=== PATIENT | female | born 1985 | race Caucasian/White ===

== ENCOUNTER 2023-03-07 15:34 | Emergency (ER) | payer OTHER, SELFPAY ==
[2023-03-07] VITALS (30 sets, daily range): BP systolic 141–174; BP diastolic 92–107; PULSE 76–100; RESP 18–20; TEMP 37.4; O2SAT 95–99; BMI 43.3
--- NOTE | 2023-03-07 15:45 | ED.NURSE ---
Intermittent since last Sat. EKG NSR. Dr Guerrero aware and pt ok to wait.
--- NOTE | 2023-03-07 15:58 | ED.CHESTPAIN ---
HPI - Chest Pain General Date Seen: 03/07/23 Chief Complaint: Chest Pain Stated Complaint: Chest Pain Time Seen by Provider: 03/07/23 15:58 Source: patient Mode of arrival: ambulatory Limitations: no limitations History of Present Illness HPI narrative: Essie is a very pleasant 38-year-old female with a history of obesity otherwise healthy who comes to the emergency room for evaluation of chest pain. Patient notes that she has been experiencing intermittent substernal middle of the chest discomfort since last Saturday or approximately 8 days ago. She states the pain is usually worse in the morning when she 1st gets up and occasionally few she feels it in the afternoon. In the evening however the pain goes away. Today she has been in the emergency room for extended periods secondary to high patient volume and notes that she has had pain the entire time. It is not associated with dizziness, shortness of breath, nausea. Does not really change with activity. It does appear to come and go. In discussion with Essie she has not had any recent fever chills. She is on control also denies . She does note sister with a history of a blood clot but no known history of factor 5. Her mother has atrial fibrillation and a heart murmur. Essie denies unusual lower extremity edema or calf pain. Related Data Home Medications Medication Instructions Recorded Confirmed No Known Home Medications 03/07/23 03/07/23 Allergies Allergy/AdvReac Type Severity Reaction Status Date / Time No Known Drug Allergies Allergy Verified 03/07/23 15:43 Review of Systems Status of ROS Reports: 10 or more systems reviewed and unremarkable except as noted in History and below Const Denies: fever, chills or change in weight Eyes Denies: change in vision or blurry vision ENMT Denies: throat pain or throat swelling Cardio Reports: chest pain; Denies: palpitations, edema, swelling of feet/ankles, lightheadedness or shortness of breath with exertion Resp Denies: shortness of breath or cough GI Denies: abdominal pain, nausea or vomiting Musculo Denies: back pain, extremity pain or extremity swelling Integ/Breast Denies: rash Neuro Denies: headache, numbness in extremities or weakness in extremities Psych Denies: anxiety Endo Denies: excessive urination Allergy/Immuno Denies: throat swelling PFSH PFSH Social History Smoking Status: Never smoker Do you use any of these nicotine containing products: None Second hand tobacco smoke exposure: No How often do you have a drink containing alcohol: 2-4 times a month How many standard drinks containing alcohol do you have on a typical day: 1 or 2 How often do you have six or more drinks on one occasion: Never AUDIT-C Alcohol total score: 2 Non-prescribed substance use: denies use service: No Exam Narrative Exam Narrative: Essie is alert and oriented. Nontoxic in appearance. Neck is supple no lymphadenopathy. Heart with regular rate and rhythm. No murmur. Patient thought she may felt better while leaning forward however. He abdomen is soft and nontender. Negative Payne sign. Lower extremities without significant edema. No calf tenderness. Const Vital Signs, click to edit/add: Vital Signs - 24 hr 03/07/23 15:38 03/07/23 17:19 03/07/23 17:25 Temperature 99.3 F Pulse Rate 100 Pulse Rate [Pulse Oximeter] 90 95 Respiratory Rate 20 18 Blood Pressure Blood Pressure [Left Upper Arm] 154/100 H 155/100 H Pulse Oximetry 98 98 97 Oxygen Delivery Method Room Air Room Air 03/07/23 17:30 03/07/23 17:31 03/07/23 17:45 Temperature Pulse Rate 88 88 84 Pulse Rate [Pulse Oximeter] Respiratory Rate Blood Pressure 174/107 H Blood Pressure [Left Upper Arm] Pulse Oximetry 99 99 99 Oxygen Delivery Method 03/07/23 18:01 03/07/23 18:02 03/07/23 18:15 Temperature Pulse Rate 87 95 87 Pulse Rate [Pulse Oximeter] Respiratory Rate Blood Pressure 151/93 H Blood Pressure [Left Upper Arm] Pulse Oximetry 97 97 96 Oxygen Delivery Method 03/07/23 18:39 03/07/23 18:45 03/07/23 19:00 Temperature Pulse Rate 89 79 84 Pulse Rate [Pulse Oximeter] Respiratory Rate Blood Pressure Blood Pressure [Left Upper Arm] Pulse Oximetry 98 97 98 Oxygen Delivery Method 03/07/23 19:01 03/07/23 19:15 03/07/23 19:30 Temperature Pulse Rate 85 80 81 Pulse Rate [Pulse Oximeter] Respiratory Rate Blood Pressure 147/92 H Blood Pressure [Left Upper Arm] Pulse Oximetry 98 99 97 Oxygen Delivery Method 03/07/23 19:31 03/07/23 19:41 03/07/23 19:42 Temperature Pulse Rate 90 76 77 Pulse Rate [Pulse Oximeter] Respiratory Rate Blood Pressure 141/106 H 143/101 H Blood Pressure [Left Upper Arm] Pulse Oximetry 99 99 98 Oxygen Delivery Method 03/07/23 19:45 03/07/23 20:00 03/07/23 20:01 Temperature Pulse Rate 85 78 80 Pulse Rate [Pulse Oximeter] Respiratory Rate Blood Pressure 141/97 H Blood Pressure [Left Upper Arm] Pulse Oximetry 95 97 97 Oxygen Delivery Method 03/07/23 20:15 03/07/23 20:30 03/07/23 20:31 Temperature Pulse Rate 85 85 84 Pulse Rate [Pulse Oximeter] Respiratory Rate Blood Pressure 144/101 H Blood Pressure [Left Upper Arm] Pulse Oximetry 98 98 97 Oxygen Delivery Method 03/07/23 20:46 03/07/23 21:00 03/07/23 21:01 Temperature Pulse Rate 90 87 87 Pulse Rate [Pulse Oximeter] Respiratory Rate Blood Pressure 151/98 H Blood Pressure [Left Upper Arm] Pulse Oximetry 96 96 97 Oxygen Delivery Method 03/07/23 21:15 03/07/23 21:30 03/07/23 21:31 Temperature Pulse Rate 80 85 83 Pulse Rate [Pulse Oximeter] Respiratory Rate Blood Pressure 151/97 H Blood Pressure [Left Upper Arm] Pulse Oximetry 97 98 99 Oxygen Delivery Method Documenting provider has reviewed patient's vital signs: yes Course Course Hospital Course: Differential diagnosis includes but is not limited to angina, acute coronary event, esophageal spasm, esophagitis, anxiety, pericarditis, chest wall pain. Will place an IV and the draw labs to include CBC, CRP, troponin, comprehensive. Will do EKG and chest x-ray as well. Reevaluation(s) Reevaluation #1: Patient notes no change in her discomfort with the use GI cocktail. She will now be given Toradol. EKGs continue to be negative initial troponin is negative as well. Reevaluation #2: Patient still continues to feel substernal chest pain. Toradol and a GI cocktail did not appear to make a difference. At this time I have ordered a CT of the chest. Vital Signs Vital signs: Initial Vital Signs Temperature 99.3 F 03/07/23 15:38 Temperature Source Temporal Artery Scan 03/07/23 15:38 Pulse Rate 90 03/07/23 15:38 Respiratory Rate 20 03/07/23 15:38 Blood Pressure 154/100 H 03/07/23 15:38 Blood Pressure Mean 118 H 03/07/23 15:38 Blood Pressure Position Sitting 03/07/23 15:38 Pulse Oximetry 98 03/07/23 15:38 Oxygen Delivery Method Room Air 03/07/23 15:38 Vital Signs Temperature 99.3 F 03/07/23 15:38 Pulse Rate 90 03/07/23 15:38 Respiratory Rate 20 03/07/23 15:38 Blood Pressure 154/100 H 03/07/23 15:38 Pulse Oximetry 98 03/07/23 15:38 Oxygen Delivery Method Room Air 03/07/23 15:38 Temperature 99.3 F 03/07/23 15:38 Pulse Rate 83 03/07/23 21:31 Respiratory Rate 18 03/07/23 17:19 Blood Pressure 151/97 H 03/07/23 21:31 Pulse Oximetry 99 03/07/23 21:31 Oxygen Delivery Method Room Air 03/07/23 17:19 MDM - Chest Pain MDM Narrative Medical decision making narrative: 1. Atypical chest pain-patient had been experiencing chest discomfort while in our waiting room for an extended. Fortunately no evidence of ST or T-wave changes no and we have 2 sets of cardiac enzymes that were negative. D-dimer was normal as was CRP. There was no evidence of aortic dissection. GI cocktail, Toradol did not seem to change the discomfort. Patient does note that she was able to be very active over the weekend without any chest pain. Tonight the pain does not seem to be related to activity or rest. It is been occurring intermittently. I would like patient to follow-up with Dr. Santiago as she does have biventricular cardiomegaly on CT. No other findings to explain her discomfort. She does have a history of a heart murmur. I think it would be rodriguez for stress test and echocardiogram in her particular case. She understands that she will need to return to the emergency room for worsening symptoms and feels safe going home at this time. 2. Suspected GERD-omeprazole 20 mg p.o. given at this time. Like her to continue that for an additional 2 weeks. 2. Disposition-home at this time. Return for worsening symptoms and as needed. Medical Records Data Attestation: I reviewed the patient's medical records. Lab Data Attestation: I reviewed the patient's lab results. Labs: Lab Results 03/07/23 03/07/23 03/07/23 Range/Units 17:31 17:45 19:15 WBC 9.19 (4.50-11.00) K/uL RBC 5.20 (4.00-5.20) m/uL Hgb 15.6 (12.0-16.0) gm/dL Hct 46.2 (33.0-51.0) % MCV 89 (80-100) fL MCH 30 (26-34) pg MCHC 34 (32-36) gm/dL RDW Coeff of Shama 11.8 (11.5-15.5) % Plt Count 338 (140-440) K/uL Neut % (Auto) 67.8 (42.0-72.0) % Lymph % (Auto) 25.7 (20-44) % [place] % (Auto) 5.5 (0.0-11.0) % Eos % (Auto) 0.7 (0.0-7.0) % Baso % (Auto) 0.2 (0.0-3.0) % Neut # (Auto) 6.23 (1.7-7.0) K/uL Lymph # (Auto) 2.36 (0.90-2.90) K/uL [place] # (Auto) 0.50 (0.00-0.90) K/UL Eos # (Auto) 0.06 (0.00-0.50) K/uL Baso # (Auto) 0.02 (0.00-0.30) K/uL D-Dimer Quant (PE/DVT) 0.50 (0.00-0.50) ug/ml Sodium 137 (135-149) mmol/L Potassium 4.1 (3.6-5.1) mmol/L Chloride 104 (96-114) mmol/L Carbon Dioxide 23 (20-32) mmol/L BUN 15 (5-24) mg/dL Creatinine 0.7 (0.5-1.5) mg/dL Estimated Creat Clear 99.01 Estimated GFR 114 ml/min Glucose 104 (60-115) mg/dL Calcium 8.7 (8.4-10.6) mg/dL Total Bilirubin 0.4 (0.1-1.5) mg/dL Direct Bilirubin 0.0 (0.0-0.5) mg/dL AST 23 (12-35) U/L ALT 27 (4-35) U/L Alkaline Phosphatase 79 (40-150) U/L C-Reactive Protein 0.6 (0.5-1.0) mg/dL Total Protein 8.6 H (6.0-8.3) g/dL Albumin 4.8 (3.3-5.0) g/dL Urine Color Yellow (Yellow) Urine Appearance Clear (Clear) Urine pH 5.5 (5.0-8.5) Ur Specific Mchenry 1.015 (1.000-1.030) Urine Protein Negative (Negative) Urine Glucose (UA) Negative (Negative) Urine Ketones Negative (Negative) Urine Blood Trace-intact A (Negative) Urine Nitrite Negative (Negative) Urine Bilirubin Negative (Negative) Urine Urobilinogen 0.2 (0.2-1.0) Ur Leukocyte Esterase Trace A (Negative) Urine HCG, Qual Negative (Negative) POC Troponin I 0.00 L 0.00 L (0.01-0.04) ng/ml Imaging Data Chest x-ray: Attestation: I have reviewed the pertinent imaging results. My impression: No evidence of infiltrates by my read Radiologist's impression: Cardiovascular and mediastinum:? Cardiomediastinal silhouette is within normal limits.? Lungs and pleural spaces:? Lungs are clear.? No sign of pleural effusion.? No pneumothorax.? Bones and soft tissues:? No significant findings. IMPRESSION: No acute cardiopulmonary process identified. CT scan - chest: Attestation: I have reviewed the pertinent imaging results. Radiologist's impression: Cardiovascular: The pulmonary arteries are unremarkable in enhancement with no evidence of acute pulmonary embolism. Mild biventricular cardiomegaly is noted. No sign of aneurysm in the thoracic aorta. Mediastinum: No mass or adenopathy seen. Lung: Both lungs are unremarkable in appearance. Pleura and pericardium: No sign of pleural effusion seen. No significant pericardial effusion is present. Chest wall and axilla: No mass or adenopathy seen. Bone: Unremarkable for age. Upper abdomen: Unremarkable. IMPRESSIONS: 1. No CT evidence of acute pulmonary emboli seen. 2. Mild biventricular cardiomegaly is noted. ECG Data Attestation: I personally reviewed and interpreted this ECG as follows: ECG interpretation date: 03/07/23 Interpretation: EKG by my read shows sinus rhythm at a rate of 91. I do not note any acute ST or T-wave changes. Second EKG by my read shows sinus rhythm at a rate of [address] or T-wave changes. Discharge Plan Discharge Clinical Impression: Atypical chest pain Patient Disposition: Home, Self-Care Condition: Unchanged Additional Instructions: Continue omeprazole daily for 2 weeks. This is [id number]. Take 20 mg or 1 tablet daily. Follow-up with Dr. Santiago or another colleague if there is availability for stress test scheduling as well as echocardiogram. Return to the emergency room for worsening symptoms or the onset of new symptoms. Prescriptions: No Action No Known Home Medications Follow Up/Referrals: Provider,Not a Local [Primary Care Provider] - Stand Alone Forms: [employer] Info Instructions
--- NOTE | 2023-03-07 17:32 | CRLHL7_ITS ---
For Patients: As a result of the Cures Act, medical imaging exams and procedure reports are released immediately into your electronic medical record. You may view this report before your referring provider. If you have questions, please contact your health care provider. INDICATION: Chest pain. TECHNIQUE: Chest 1 views. COMPARISON: None. FINDINGS: Cardiovascular and mediastinum: Cardiomediastinal silhouette is within normal limits. Lungs and pleural spaces: Lungs are clear. No sign of pleural effusion. No pneumothorax. Bones and soft tissues: No significant findings. IMPRESSION: No acute cardiopulmonary process identified. Dictated by Hong Leon MD @ 03/07/2023 7:21:20 PM (Electronically Signed)
[2023-03-07 18:03] LABS: Basophils Absolute Auto 0.02 K/uL (0.00-0.30); Basophils Percent Auto 0.2 % (0.0-3.0); Eosinophils Absolute Auto 0.06 K/uL (0.00-0.50); Eosinophils Percent Auto 0.7 % (0.0-7.0); Hematocrit 46.2 % (33.0-51.0); Hemoglobin* 15.6 gm/dL (12.0-16.0); Immature Granulocytes Abs Auto 0.01 K/uL (0.00-0.30); Immature Granulocytes Pct Auto 0.1 %; Lymphocytes Absolute Auto 2.36 K/uL (0.90-2.90); Lymphocytes Percent Auto 25.7 % (20-44); Mean Corpuscular HGB Conc 34 gm/dL (32-36); Mean Corpuscular Hemoglobin 30 pg (26-34); Mean Corpuscular Volume 89 fL (80-100); Monocytes Percent Auto 5.5 % (0.0-11.0); Neutrophils Absolute Auto 6.23 K/uL (1.7-7.0); Neutrophils Percent Auto 67.8 % (42.0-72.0); Platelet Count* 338 K/uL (140-440); RDW Coefficient of Variation % 11.8 % (11.5-15.5); White Blood Count* 9.19 K/uL (4.50-11.00)
[2023-03-07 18:15] LABS: Chloride* 104 mmol/L (96-114)
[2023-03-07 18:16] LABS: Albumin* 4.8 g/dL (3.3-5.0); Potassium* 4.1 mmol/L (3.6-5.1); Sodium* 137 mmol/L (135-149)
[2023-03-07 18:18] LABS: Creatinine* 0.7 mg/dL (0.5-1.5); Est. Creatinine Clearance* 99.01; Estimated Glomerular Filt Rate 114 ml/min; Slide Review Reflex No
[2023-03-07 18:19] LABS: Alanine Aminotransferase* 27 U/L (4-35); Alkaline Phosphatase* 79 U/L (40-150); Aspartate Amino Transferase* 23 U/L (12-35); Bilirubin Total* 0.4 mg/dL (0.1-1.5); Blood Urea Nitrogen* 15 mg/dL (5-24); Carbon Dioxide* 23 mmol/L (20-32); Glucose* 104 mg/dL (60-115); Total Protein* 8.6 g/dL (6.0-8.3)
[2023-03-07 18:20] LABS: Calcium* 8.7 mg/dL (8.4-10.6)
[2023-03-07] MEDS: GI COCKTAIL (VISC LIDO/ANTACID) 30 ML PO (18:20)
[2023-03-07 18:22] LABS: C Reactive Protein* 0.6 mg/dL (0.5-1.0)
--- NOTE | 2023-03-07 18:24 | ED.NURSE ---
was given gi cocktail. has no change in vague chest discomfort.
[2023-03-07 18:46] LABS: Appearance Urine Clear (Clear); Bilirubin Urine Negative (Negative); Blood Urine Trace-intact (Negative); Color Urine Yellow (Yellow); Glucose Urine Negative (Negative); Ketones Urine Negative (Negative); Leukocyte Esterase Urine Trace (Negative); Nitrite Urine Negative (Negative); Protein Urine Negative (Negative); Specific Gravity Urine 1.015 (1.000-1.030); Urobilinogen Urine 0.2 (0.2-1.0); pH Urine 5.5 (5.0-8.5)
[2023-03-07 18:51] LABS: Ur HCG Qualitative* Negative (Negative)
[2023-03-07] MEDS: KETOROLAC 15 MG/ML inj IVP (19:37)
--- NOTE | 2023-03-07 20:17 | CRLHL7_ITS ---
For Patients: As a result of the Century Cures Act, medical imaging exams and procedure reports are released immediately into your electronic medical record. You may view this report before your referring provider. If you have questions, please contact your health care provider. INDICATION: Chest pain TECHNIQUE: CT chest with i.v. contrast using pulmonary angiographic technique. Coronal and sagittal reformats were obtained. CONTRAST: 95 mL Isovue 370 COMPARISON: None FINDINGS: Cardiovascular: The pulmonary arteries are unremarkable in enhancement with no evidence of acute pulmonary embolism. Mild biventricular cardiomegaly is noted. No sign of aneurysm in the thoracic aorta. Mediastinum: No mass or adenopathy seen. Lung: Both lungs are unremarkable in appearance. Pleura and pericardium: No sign of pleural effusion seen. No significant pericardial effusion is present. Chest wall and axilla: No mass or adenopathy seen. Bone: Unremarkable for age. Upper abdomen: Unremarkable. IMPRESSIONS: 1. No CT evidence of acute pulmonary emboli seen. 2. Mild biventricular cardiomegaly is noted. Dictated by Edwardo Chino MD @ 03/07/2023 9:46:11 PM Please note that all CT scans at this facility use dose modulation, iterative reconstruction, and/or weight-based dosing when appropriate to reduce radiation dose to as low as reasonably achievable. Dictated by: Edwardo Chino MD @ 03/07/2023 21:46:13 (Electronically Signed)
[2023-03-07] MEDS: OMEPRAZOLE 20 MG CAPSULE DR PO (22:21)
[2023-03-08 01:12] LABS: RBC Urine 0-2 (0-2); Squamous Epithelial Cell Urine Few (None-Few); WBC Urine 0-2 (0-5)
== END 2023-03-07 22:22 | disposition home or self-care (01) ==
PROVIDERS: Emergency Provider Family Medicine
DX: R07.89 Other chest pain (principal)
CPT/HCPCS: 36415; 71045; 71260; 80053; 81001; 81025; 82248; 84484; 85025; 85379; 86140; 93005; 96374; 99284; 99285; A9270; J1885; Q9967

== ENCOUNTER 2024-08-05 07:50 | Outpatient (CLI) | payer BC, SELFPAY ==
--- OUTSIDE RECORDS SUMMARY | 2024-08-05 14:22 | XMS_ITS | Clinical Summary ---
Author Organization [facility] Address [place], [place] [address] Care Team Providers Care Remelt Sugar Boiler Name Role Phone Clinic, [facility] Primary Care Pr ovider Allergies No known active allergies Medications Medication Sig Dispensed Refills Start Date End Date Status permethrin (ELIMITE) 5 % creamIndications:Scabi es Apply to entire body from the neck down and leave on for 8 hours. Then rinse and repeat this in one week. 60 g 08/06/2018 Active Active Problems No known active problems Social History Tobacco Use Types Packs/Day Years Used Date Smoking Tobacco: Never Smokeless Tobacco: Never Tobacco Cessation:Counseling Given: Yes Alcohol Use Standard Drinks/Week Comments Yes 0 (1 standard drink = 0.6 oz pur e alcohol) occasional PHQ-2 Answer Date Recorded PHQ-2 Score 0 01/06/2019 Sex and Gender Information Value Date Recorded Sex Assigned at Not on file Gender Identity Not on file Sexual Orientation Not on file Obstetrics History Last Filed Vital Signs Vital Sign Reading Time Taken Comments Blood Pressure 136/92 08/06/2018 2:44 PM CDT Pulse 100 08/06/2018 2:44 PM CDT Temperature 36.6 ??C (97.9 ??F) 08/06/2018 2:44 PM CD T Respiratory Rate - - Oxygen Saturation 97% 08/06/2018 2:44 PM CDT Inhaled Oxygen Concentration - - Weight 123.9 kg (273 lb 1.6 oz) 08/06/2018 2:44 PM CDT Height 163.8 cm (5' 4.5) 08/06/2018 2:44 PM CDT Body Mass Index 46.15 08/06/2018 2:44 PM CDT Plan of Treatment Health Maintenance Due Date Last Done Comments Tdap 1997 HIV for age 15-65 2001 Hepatitis C screening for ag e 18-79 01/03/2004 Tetanus booster 2006 BMI (ht and wt on same day) for age 18+ 08/06/2019 08/06/2018 Depression screening for age 12+ 08/06/2019 08/06/2018 Pap test for age 21-65 05/14/2020 7, 05/14/2017 COVID-19 vaccine series ( - 2023-25 season) 2024 Influenza for age 9-49 07/05/2024 Pneumococcal series for age 6-64 Aged Out No longer eligible b ased on patient's age to complete this topic Procedures Procedure Name Priority Date/Time Associated Diagnosis Comments SALES INCENTIVE ANALYST THIN PREP PAP SCREEN IMAGED Routine 05/14/2017 7:00 PM CDT from Last 3 Months or Most Recently Relevant to Health Maintenance Results * SALES INCENTIVE ANALYST THIN PREP PAP SCREEN IMAGED (05/14/2017 7:00 PM CDT) Case Report Gynecologic Cytology Report ? Case: [id number] ? Authorizing Provider: ??Arelis Amador PA-C ?Collected: ? 05/14/2017 1900 ? First Screen: ?Rios, Shy ? Received: ?05/17/2017 0848 ? Specimen: ?SALES INCENTIVE ANALYST ThinPrep Vial Screening, Cervical/Vaginal ? 05/22/2017 10:25 AM CDT [facility] INTERPRETATION/ RESULT NEGATIVE FOR INTRAEPITHELIAL LESION OR MALIGNANCY (NIL) (none) 05/22/2017 10:25 AM CDT [facility] IMEN ADEQUACY Satisfactory for evaluation Endocervical component present 05/22/2017 10:25 AM CDT [facility] HPV REQUEST HPV and PAP 05/22/2017 10:25 AM T [facility] Automated Review Successful 05/22/2017 10:25 AM T [facility] Comment:Specimen processed s uccessfully by automated lead front desk agent device, [employer] Imaging System, [employer] ANCILLARY TESTING SALES INCENTIVE ANALYST HPV Ordered, Please see separate report 05/22/2017 10:25 AM T [facility] Note The pap test is a screening technique, not a diagnostic procedure. ??It is used primarily to screen for squamous cancers and precursor lesions. ??Published studies have shown that it is subject to both false negative and false positive results. ??The pap test should not be used as the sole means to diagnose or exclude pre-malignant and malignant lesions. Interpreted at [facility] ([facility], [facility], [facility], [facility], [facility], [facility], [facility]) 05/22/2017 10:25 AM T [facility] Other (Cervical/Vagina l) 05/14/2017 7:00 PM CDT 05/17/2017 8:48 AM CDT February Marjorie LAI PATHOLOGY/[facility]OLOGY [facility] [address] [place] [address], [place] from Last 3 Months or Most Recently Relevant to Health Maintenance Care Teams Remelt Sugar Boiler Relationship Specialty Start Date End Date Clinic, [facility] [address] [place] [address] PCP - General 06/15/24
== END 2024-08-05 07:51 | disposition home or self-care (01) ==
PROVIDERS: PCP Internal Medicine; Referring Provider Internal Medicine; Visit Provider Internal Medicine
DX: Z00.00 Encounter for general adult medical examination without abnormal findings (principal); I10 Essential (primary) hypertension; Z80.41 Family history of malignant neoplasm of ovary; Z13.6 Encounter for screening for cardiovascular disorders
CPT/HCPCS: 80053; 80061; 86304

== ENCOUNTER 2024-08-17 17:10 | Outpatient (CLI) | payer BC, SELFPAY ==
--- OUTSIDE RECORDS SUMMARY | 2024-08-17 17:18 | XMS_ITS | Clinical Summary ---
Author Organization [facility] Address [place], [place] [address] Care Team Providers Care Forms Examiner Name Role Phone Clinic, [facility] Primary [facility] Pr ovider Allergies No known [...] Procedure Name Priority Date/Time Associated Diagnosis Comments HOSPITALITY INTERNSHIP THIN PREP PAP SCREEN IMAGED Routine 05/14/2017 7:00 PM CDT from Last 3 Months or Most Recently Relevant to Health Maintenance Results * HOSPITALITY INTERNSHIP THIN PREP PAP SCREEN IMAGED (05/14/2017 7:00 PM CDT) Case Report Gynecologic Cytology Report ? Case: [id number] ? Authorizing Provider: ??Arelis Amador PA-C ?Collected: ? 05/14/2017 1900 ? First Screen: ?Rios, Shy ? Received: ?05/17/2017 0848 ? Specimen: ?HOSPITALITY [employer]NSHIP ThinPrep Vial Screening, Cervical/Vaginal ? 05/22/2017 10:25 AM CDT [facility] INTERPRETATION/ RESULT NEGATIVE FOR INTRAEPITHELIAL LESION OR MALIGNANCY (NIL) (none) 05/22/2017 10:25 AM CDT [facility] IMEN ADEQUACY Satisfactory for evaluation Endocervical component present 05/22/2017 10:25 AM CDT [facility] HPV REQUEST HPV and PAP 05/22/2017 10:25 AM T [facility] Automated Review Successful 05/22/2017 10:25 AM T [facility] Comment:Specimen processed s uccessfully by automated it program auditor device, [employer] Imaging System, [employer] ANCILLARY TESTING HOSPITALITY INTERNSHIP HPV Ordered, Please see separate report 05/22/2017 10:25 AM T [facility] Note The pap test is a screening technique, not a diagnostic procedure. ??It is used primarily to screen for squamous cancers and precursor lesions. ??Published studies have shown that it is subject to both false negative and false positive results. ??The pap test should not be used as the sole means to diagnose or exclude pre-malignant and malignant lesions. Interpreted at [facility] ([facility], [facility], [facility], [facility], [facility], [facility], [facility]) 05/22/2017 10:25 AM T [facility] Other (Cervical/Vagina l) 05/14/2017 7:00 PM CDT 05/17/2017 8:48 AM CDT February Marjorie LAI [facility]OLOG[facility] [address] [place] [address], [place] from Last 3 Months or Most Recently Relevant to Health Maintenance Care Teams Forms Examiner Relationship Specialty Start Date End Date Clinic, [facility] [address] [place] [address] PCP - General 06/15/24
[2024-08-20 11:35] LABS: HPV Source Cervix; HPV, High Risk by TMA Not Detected
== END 2024-08-17 17:11 | disposition home or self-care (01) ==
PROVIDERS: PCP Internal Medicine; Visit Provider Physician Assistant
DX: Z12.4 Encounter for screening for malignant neoplasm of cervix (principal)
CPT/HCPCS: 87624; 87625; 88141; 88142